=== PATIENT | male | born 1990 | race Two or more races ===

== ENCOUNTER 2018-06-08 09:13 | Emergency (ER) | payer OTHER ==
[~2018-06-08] VITALS: Ht 182.9 cm; Wt 112.6 kg
--- NOTE | 2018-06-08 10:07 | NUR ---
PT SENT FROM [facility]RG[facility]ARE FOR MELODIE TONSILAR ABSCESS
[2018-06-08] MEDS ORDERED: KETOROLAC 30 MG/1 ML ONE (11:10)
[2018-06-08] MEDS ORDERED: DEXAMETHASONE 4 MG/ML, 5ML ONE (11:11)
--- NOTE | 2018-06-08 11:21 | NUR ---
PT MEDICATED FOR PAIN, VSS, NO COMPLAINTS AT THIS TIME, AWAITING CT
[2018-06-08] MEDS ORDERED: DEXAMETHASONE 4 MG/ML, 1ML IVPush ONE (11:30)
[2018-06-08] MEDS ORDERED: KETOROLAC 30 MG/1 ML IVPush ONE (11:30)
[2018-06-08] MEDS ORDERED: DEXAMETHASONE 10 MG in SODIUM CHLORIDE 0.9% 50 ML IV ONE (11:30)
--- NOTE | 2018-06-08 11:46 | NUR ---
PT TO CT, NO COMPLAINTS
--- NOTE | 2018-06-08 12:10 | NUR ---
PT IN ROOM, NO COMPLAINTS, VSS, AWAITING RESULTS
--- NOTE | 2018-06-08 12:51 | NUR ---
RECEIVED BEDSIDE REPORT FROM GARY MALONEY. PT RESTING IN BED. ALL RESULTS BACK, PT UP FOR RECHECK. NO NEEDS STATED BY PT AT THIS TIME, NO DISTRESS NOTED. WILL CONTINUE TO MONITOR.
[2018-06-08] MEDS ORDERED: BENZOCAINE AEROSOL SPRAY 20%, 60ML ONE (13:01)
[2018-06-08 13:17] VITALS: BP 105/64
--- NOTE | 2018-06-08 14:30 | NUR ---
Patient/Caregiver given discharge instructions and they have confirmed that they understand the instructions. Patient ambulatory with steady gait.
== END 2018-06-08 14:31 | disposition home or self-care (01) ==
LOC: ED 10:57
DX: J36 Peritonsillar abscess (principal); F17.200 Nicotine dependence, unspecified, uncomplicated
CPT/HCPCS: 42700; 70491; 96374; 96375; 99284; J1100; J1885